=== PATIENT | female | born 1980 | race Caucasian/White ===

== ENCOUNTER 2024-08-08 22:22 | Emergency (ER) | payer BC, SELFPAY ==
[2024-08-09] MEDS ORDERED: Ketorolac Tromethamine 30 MG (1 mL) VIAL ONE (00:06)
== END 2024-08-09 00:23 | disposition home or self-care (01) ==
LOC: ERS 22:22
DX: K08.89 Other specified disorders of teeth and supporting structures (principal); K02.9 Dental caries, unspecified; K03.81 Cracked tooth; F17.210 Nicotine dependence, cigarettes, uncomplicated
CPT/HCPCS: 96372; 99283; J1885

== ENCOUNTER 2025-09-19 07:09 | Inpatient (IN) | payer SELFPAY ==
[2025-09-19] MEDS ORDERED: Lidocaine 1% (PF) 30 ML VIAL ONE (07:12)
[2025-09-19] MEDS ORDERED: Nitroglycerin 50 MG/250 ML BOT 250 ML ONE (07:12)
[2025-09-19] MEDS ORDERED: Heparin 10,000 UNITS/ 10 ML VIAL ONE ×4 (07:12→08:39)
[2025-09-19] MEDS ORDERED: Ondansetron PF 4 MG/2 ML Vial ONE ×2 (07:12→07:18)
[2025-09-19] MEDS ORDERED: Heparin 25,000 UNITS/D5W 500 ml bag ONE (07:18)
[2025-09-19] MEDS ORDERED: Nitroglycerin 2% Ointment 1 INCH/1 GM Packet ONE (07:20)
[2025-09-19 07:44] LABS: PTT 23.4 sec (22.9-36.1)
[2025-09-19 07:45] LABS: #Basophils 0.09 10x3/uL (0.0-0.2); #Eosinophils 0.17 10x3/uL (0.0-0.7); #Monocytes 1.00 10x3/uL (0.11-0.59); #Neutrophils 10.19 10x3/uL (1.40-6.50); %Basophils 0.6 % (0.0-1.0); %Eosinophils 1.1 % (0.0-10.0); %Lymphocytes 24.9 % (21.0-51.0); %Monocytes 6.5 % (0.0-10.0); %Neutrophils 66.3 % (42.0-75.0); Hematocrit 28.8 % (36.0-47.0); Hemoglobin 8.1 g/dL (12.0-16.0); INR-International Normal Ratio 1.3; Mean Corpuscular Hemoglobin 17.8 pg (27.0-31.0); Mean Corpuscular Volume 63.3 fL (78.0-98.0); Platelet Count 306 10x3/uL (130-400); Prothrombin Time 16.6 sec (12.0-14.7); Red Blood Cell (RBC) Count 4.55 mill/uL (4.20-5.40); White Blood Cell (WBC) Count 15.37 10x3/uL (4.8-10.8)
[2025-09-19 07:48] LABS: ALT (SGPT) 7 U/L (Less than 34); AST (SGOT) 14 U/L (11-34); Albumin 3.2 g/dL (3.1-4.5); Alkaline Phosphatase 59 U/L (40-110); Anion Gap 12 mmol/L (10-20); BUN (Urea Nitrogen) 10 mg/dL (7.0-18.7); Bilirubin, Total 0.3 mg/dL (0.3-1.2); Calc. Creatinine Clearance 0 mL/min (70-130); Calcium 8.0 mg/dL (7.8-10.44); Carbon Dioxide 18 mmol/L (22-29); Chloride 114 mmol/L (98-107); Globulin 2.9 g/dL (2.4-3.5); Glucose 147 mg/dL (70-105); Potassium 3.5 mmol/L (3.5-5.1); Sodium 140 mmol/L (136-145)
[2025-09-19] MEDS ORDERED: TICAGRELOR 90 MG TABLET ONE (08:08)
[2025-09-19 08:39] LABS: Burr Cells MODERATE= 6-15 cells HPF (0-1); Microcytosis MODERATE=15-30 cells HPF (0-5); Platelet Adequacy Comment Platelets Normal; Poikilocytosis SLIGHT = 6-15 cells HPF (0-5); Polychromasia SLIGHT = 2-3 cells HPF (0-2); Smudge Cells 11.0 %
[2025-09-19] MEDS ORDERED: Adenosine 6 mg (2 mL) VIAL ONE (08:55)
[2025-09-19] MEDS: Ondansetron PF 4 MG/2 ML Vial IVP PRN (10:47)
[2025-09-19] MEDS: Activase 2 MG VIAL CATH SCH (11:12)
[2025-09-19 11:17] VITALS: BMI 41.5
[2025-09-19] MEDS: Ondansetron PF 4 MG/2 ML Vial ONE (11:18)
[2025-09-19 12:06] LABS: Influenza A by NAA Not Detected (NotDetected); Influenza B by NAA Not Detected (NotDetected); RSV by NAA Not Detected (NotDetected); SARS-CoV-2 NAA Rapid Test Not Detected (NotDetected)
[2025-09-19] MEDS ORDERED: Rocuronium Bromide 10 MG/ML (10ML VIAL) ONE (12:09)
[2025-09-19] MEDS ORDERED: PROPOFOL 20 ML ONE (12:09)
[2025-09-19] MEDS ORDERED: SUCCINYLCHOLINE/SOD CL,ISO/PF 200 MG/10 ML SYRINGE FS ONE (12:09)
[2025-09-19] MEDS ORDERED: Heparin 5,000 UNITS/ML VIAL ONE (12:21)
[2025-09-19] MEDS ORDERED: Iopamidol 370 76% 100 ML VIAL ONE (12:55)
[2025-09-19] MEDS ORDERED: PHENYLEPHRINE-NS 100 MCG/ML 10 ML SYRINGE ONE (13:16)
[2025-09-19 13:34] LABS: Actual Bicarbonate (HCO3a) 16.9 mEq/L (22-28); Base Excess (BEa) -9.1 mEq/L (-2.0 to +3.0); CO2 Tension 36.6 mmHg (35.0-45.0); Calcium, Ionized (arterial) 1.03 mmol/L (1.12-1.30); Hematocrit-ABG 29 % (36.0-47.0); Hemoglobin (Hb) 9.7 g/dL (12.0-16.0); Potassium - ABG Lab 4.87 mmol/L (3.70-5.30); pH, Arterial 7.281 (7.35-7.45)
[2025-09-19 13:39] LABS: Puncture Site Right Radial artery
[2025-09-19 13:59] LABS: #Basophils 0.06 10x3/uL (0.0-0.2); #Eosinophils Less than 0.03 10x3/uL (0.0-0.7); #Monocytes 1.10 10x3/uL (0.11-0.59); #Neutrophils 17.44 10x3/uL (1.40-6.50); %Basophils 0.3 % (0.0-1.0); %Eosinophils 0.1 % (0.0-10.0); %Lymphocytes 5.1 % (21.0-51.0); %Monocytes 5.6 % (0.0-10.0); %Neutrophils 88.0 % (42.0-75.0); Hematocrit 29.3 % (36.0-47.0); Hemoglobin 8.6 g/dL (12.0-16.0); Mean Corpuscular Hemoglobin 22.2 pg (27.0-31.0); Mean Corpuscular Volume 75.5 fL (78.0-98.0); Platelet Count 224 10x3/uL (130-400); Red Blood Cell (RBC) Count 3.88 mill/uL (4.20-5.40); White Blood Cell (WBC) Count 19.79 10x3/uL (4.8-10.8)
[2025-09-19 14:06] LABS: ALT (SGPT) 35 U/L (Less than 34); AST (SGOT) 230 U/L (11-34); Albumin 3.0 g/dL (3.1-4.5); Alkaline Phosphatase 56 U/L (40-110); Anion Gap 14 mmol/L (10-20); BUN (Urea Nitrogen) 10 mg/dL (7.0-18.7); Bilirubin, Total 0.4 mg/dL (0.3-1.2); Calc. Creatinine Clearance 185 mL/min (70-130); Calcium 7.1 mg/dL (7.8-10.44); Carbon Dioxide 16 mmol/L (22-29); Chloride 116 mmol/L (98-107); Globulin 2.5 g/dL (2.4-3.5); Glucose 139 mg/dL (70-105); INR-International Normal Ratio 1.3; Potassium 4.5 mmol/L (3.5-5.1); Prothrombin Time 16.5 sec (12.0-14.7); Sodium 141 mmol/L (136-145)
[2025-09-19 14:07] LABS: PTT 84.6 sec (22.9-36.1)
[2025-09-19] MEDS ORDERED: Fentanyl BOLUS 100 ML IVPB PRN (15:00)
[2025-09-19] MEDS ORDERED: Propofol BOLUS 1,000 MG/100 ML VIAL IV PRN (15:00)
[2025-09-19] MEDS ORDERED: DISCONTINUE PREVIOUS NARCOTIC PAIN MEDICATIONS AND BENZODIAZEPINES FS SCH (15:00)
[2025-09-19] MEDS: Norepinephrine 8 MG/0.9% NS 0 ML ONE (15:20)
[2025-09-19] MEDS ORDERED: Heparin 10,000 UNITS/ 10 ML VIAL SLOW IVP SCH (16:00)
[2025-09-19 16:30] LABS: Hematocrit 27.5 % (36.0-47.0); Hemoglobin 8.3 g/dL (12.0-16.0); Platelet Count 193 10x3/uL (130-400)
[2025-09-19 20:07] LABS: Hematocrit 25.8 % (36.0-47.0); Hemoglobin 7.9 g/dL (12.0-16.0)
[2025-09-19] MEDS: Famotidine/PF 20 mg/2ml Vial SLOW IVP SCH (20:47)
[2025-09-19] MEDS ORDERED: TICAGRELOR 90 MG TABLET PO SCH (21:00)
[2025-09-19 23:02] LABS: Hematocrit 24.1 % (36.0-47.0); Hemoglobin 7.4 g/dL (12.0-16.0)
[2025-09-20 01:01] LABS: #Basophils 0.04 10x3/uL (0.0-0.2); #Eosinophils Less than 0.03 10x3/uL (0.0-0.7); #Monocytes 0.87 10x3/uL (0.11-0.59); #Neutrophils 11.29 10x3/uL (1.40-6.50); %Basophils 0.3 % (0.0-1.0); %Eosinophils 0.1 % (0.0-10.0); %Lymphocytes 15.8 % (21.0-51.0); %Monocytes 6.0 % (0.0-10.0); %Neutrophils 77.3 % (42.0-75.0); Mean Corpuscular Hemoglobin 22.6 pg (27.0-31.0); Mean Corpuscular Volume 74.4 fL (78.0-98.0); Platelet Count 173 10x3/uL (130-400); Red Blood Cell (RBC) Count 3.28 mill/uL (4.20-5.40); White Blood Cell (WBC) Count 14.61 10x3/uL (4.8-10.8)
[2025-09-20 04:48] LABS: #Basophils 0.05 10x3/uL (0.0-0.2); #Eosinophils 0.07 10x3/uL (0.0-0.7); #Monocytes 0.95 10x3/uL (0.11-0.59); #Neutrophils 10.17 10x3/uL (1.40-6.50); %Basophils 0.4 % (0.0-1.0); %Eosinophils 0.5 % (0.0-10.0); %Lymphocytes 19.3 % (21.0-51.0); %Monocytes 6.8 % (0.0-10.0); %Neutrophils 72.5 % (42.0-75.0); Hematocrit 26.7 % (36.0-47.0); Hemoglobin 8.3 g/dL (12.0-16.0); Mean Corpuscular Hemoglobin 22.6 pg (27.0-31.0); Mean Corpuscular Volume 72.8 fL (78.0-98.0); Platelet Count 159 10x3/uL (130-400); Red Blood Cell (RBC) Count 3.67 mill/uL (4.20-5.40); White Blood Cell (WBC) Count 14.01 10x3/uL (4.8-10.8)
[2025-09-20 05:02] LABS: Anion Gap 6 mmol/L (10-20); BUN (Urea Nitrogen) 8 mg/dL (7.0-18.7); Calc. Creatinine Clearance 208 mL/min (70-130); Calcium 7.3 mg/dL (7.8-10.44); Carbon Dioxide 21 mmol/L (22-29); Chloride 117 mmol/L (98-107); Glucose 97 mg/dL (70-105); Magnesium 1.9 mg/dL (1.6-2.6); Potassium 3.5 mmol/L (3.5-5.1); Sodium 140 mmol/L (136-145)
[2025-09-20] MEDS: FLU (Fluarix Triv) 25-26 (6MOS UP)/PF 45 MCG/0.5 ML Syringe IM ONE (07:25)
[2025-09-20 07:29] LABS: O2 Tension (PaO2), arterial 59.7 mmHg (80.0-100.0)
[2025-09-20 07:50] LABS: Actual Bicarbonate (HCO3a) 18.9 mEq/L (22-28); Base Excess (BEa) -4.6 mEq/L (-2.0 to +3.0); CO2 Tension 29.2 mmHg (35.0-45.0); Calcium, Ionized (arterial) 1.06 mmol/L (1.12-1.30); Hematocrit-ABG 28 % (36.0-47.0); Hemoglobin (Hb) 9.4 g/dL (12.0-16.0); O2 Tension (PaO2), arterial 65.1 mmHg (80.0-100.0); Potassium - ABG Lab 3.39 mmol/L (3.70-5.30); pH, Arterial 7.429 (7.35-7.45)
[2025-09-20 07:53] LABS: Puncture Site Left Radial artery
[2025-09-20 07:54] LABS: ALV-art Gradient 183.600 mmHg (0-20)
[2025-09-20] MEDS: Aspirin 81 mg Enteric Coated Tablet PO SCH (08:23)
[2025-09-20 12:20] VITALS: BMI 41.5
[2025-09-20] MEDS ORDERED: DC Sedation Protocol FS SCH (13:50)
[2025-09-20] MEDS: Acetaminophen 325 MG TAB PO PRN (17:19)
[2025-09-21 04:48] LABS: #Basophils 0.07 10x3/uL (0.0-0.2); #Eosinophils 0.17 10x3/uL (0.0-0.7); #Monocytes 1.20 10x3/uL (0.11-0.59); #Neutrophils 9.88 10x3/uL (1.40-6.50); %Basophils 0.5 % (0.0-1.0); %Eosinophils 1.1 % (0.0-10.0); %Lymphocytes 24.7 % (21.0-51.0); %Monocytes 7.9 % (0.0-10.0); %Neutrophils 64.9 % (42.0-75.0); Hematocrit 22.5 % (36.0-47.0); Hemoglobin 7.1 g/dL (12.0-16.0); Mean Corpuscular Hemoglobin 22.8 pg (27.0-31.0); Mean Corpuscular Volume 72.3 fL (78.0-98.0); Platelet Count 160 10x3/uL (130-400); Red Blood Cell (RBC) Count 3.11 mill/uL (4.20-5.40); White Blood Cell (WBC) Count 15.21 10x3/uL (4.8-10.8)
[2025-09-21 04:55] LABS: ALT (SGPT) 24 U/L (Less than 34); AST (SGOT) 89 U/L (11-34); Albumin 2.4 g/dL (3.1-4.5); Alkaline Phosphatase 51 U/L (40-110); Anion Gap 5 mmol/L (10-20); BUN (Urea Nitrogen) 7 mg/dL (7.0-18.7); Bilirubin, Direct 0.2 mg/dL (0.1-0.3); Bilirubin, Total 0.5 mg/dL (0.3-1.2); Calc. Creatinine Clearance 202 mL/min (70-130); Calcium 7.4 mg/dL (7.8-10.44); Carbon Dioxide 24 mmol/L (22-29); Chloride 115 mmol/L (98-107); Glucose 100 mg/dL (70-105); Potassium 3.2 mmol/L (3.5-5.1); Sodium 141 mmol/L (136-145)
[2025-09-21 05:24] LABS: Ferritin 25.74 ng/mL (10-291); Vitamin B12 373.0 pg/mL (211-911)
[2025-09-21] MEDS ORDERED: Electrolyte Replacement Protocol 1 EACH FS SCH (06:30)
[2025-09-21] MEDS ORDERED: PHOS-NAK 1 PKT PACK PO PRN (06:30)
[2025-09-21] MEDS ORDERED: Magnesium Sulfate In Water 4 GM in Premix 1 BAG IVPB PRN (06:30)
[2025-09-21] MEDS: Potassium Chloride 20 MEQ in Premix 1 BAG IVPB PRN (07:10)
[2025-09-21] MEDS: Mupirocin 1 GM TUBE NASAL DECOLONIZATION NASAL SCH (09:14)
[2025-09-21] MEDS: Furosemide 20 MG (2 mL) VIAL SLOW IVP SCH ×2 (12:35→15:03)
[2025-09-21 16:33] LABS: Hematocrit 29.4 % (36.0-47.0); Hemoglobin 9.3 g/dL (12.0-16.0)
[2025-09-21] MEDS: Famotidine 20 MG TAB PO SCH (19:35)
[2025-09-22 03:38] LABS: #Basophils 0.06 10x3/uL (0.0-0.2); #Eosinophils 0.27 10x3/uL (0.0-0.7); #Monocytes 1.15 10x3/uL (0.11-0.59); #Neutrophils 9.11 10x3/uL (1.40-6.50); %Basophils 0.5 % (0.0-1.0); %Eosinophils 2.0 % (0.0-10.0); %Lymphocytes 19.0 % (21.0-51.0); %Monocytes 8.7 % (0.0-10.0); %Neutrophils 68.9 % (42.0-75.0); Hematocrit 27.6 % (36.0-47.0); Hemoglobin 8.9 g/dL (12.0-16.0); Mean Corpuscular Hemoglobin 24.1 pg (27.0-31.0); Mean Corpuscular Volume 74.6 fL (78.0-98.0); Platelet Count 169 10x3/uL (130-400); Red Blood Cell (RBC) Count 3.70 mill/uL (4.20-5.40); White Blood Cell (WBC) Count 13.23 10x3/uL (4.8-10.8)
[2025-09-22 03:47] LABS: ALT (SGPT) 19 U/L (Less than 34); AST (SGOT) 52 U/L (11-34); Albumin 2.7 g/dL (3.1-4.5); Alkaline Phosphatase 61 U/L (40-110); Anion Gap 12 mmol/L (10-20); BUN (Urea Nitrogen) 7 mg/dL (7.0-18.7); Bilirubin, Total 0.7 mg/dL (0.3-1.2); Calc. Creatinine Clearance 199 mL/min (70-130); Calcium 8.1 mg/dL (7.8-10.44); Carbon Dioxide 22 mmol/L (22-29); Chloride 111 mmol/L (98-107); Globulin 2.9 g/dL (2.4-3.5); Glucose 106 mg/dL (70-105); Potassium 3.4 mmol/L (3.5-5.1); Sodium 142 mmol/L (136-145)
[2025-09-22] MEDS: Dapagliflozin Propanediol 10 MG TAB PO SCH (10:22)
[2025-09-22] MEDS: Carvedilol 3.125 MG TAB PO SCH (16:12)
[2025-09-23 08:28] LABS: #Basophils 0.06 10x3/uL (0.0-0.2); #Eosinophils 0.33 10x3/uL (0.0-0.7); #Monocytes 0.88 10x3/uL (0.11-0.59); #Neutrophils 7.58 10x3/uL (1.40-6.50); %Basophils 0.6 % (0.0-1.0); %Eosinophils 3.1 % (0.0-10.0); %Lymphocytes 14.8 % (21.0-51.0); %Monocytes 8.4 % (0.0-10.0); %Neutrophils 72.3 % (42.0-75.0); Hematocrit 27.1 % (36.0-47.0); Hemoglobin 8.6 g/dL (12.0-16.0); Mean Corpuscular Hemoglobin 24.2 pg (27.0-31.0); Mean Corpuscular Volume 76.3 fL (78.0-98.0); Platelet Count 184 10x3/uL (130-400); Red Blood Cell (RBC) Count 3.55 mill/uL (4.20-5.40); White Blood Cell (WBC) Count 10.48 10x3/uL (4.8-10.8)
[2025-09-23 08:36] LABS: ALT (SGPT) 28 U/L (Less than 34); AST (SGOT) 52 U/L (11-34); Albumin 2.9 g/dL (3.1-4.5); Alkaline Phosphatase 80 U/L (40-110); Anion Gap 14 mmol/L (10-20); BUN (Urea Nitrogen) 9 mg/dL (7.0-18.7); Bilirubin, Total 1.0 mg/dL (0.3-1.2); Calc. Creatinine Clearance 192 mL/min (70-130); Calcium 8.6 mg/dL (7.8-10.44); Carbon Dioxide 20 mmol/L (22-29); Chloride 111 mmol/L (98-107); Globulin 2.8 g/dL (2.4-3.5); Glucose 106 mg/dL (70-105); Magnesium 2.0 mg/dL (1.6-2.6); Potassium 3.8 mmol/L (3.5-5.1); Sodium 141 mmol/L (136-145)
[2025-09-23 08:57] LABS: Anisocytosis SLIGHT = 6-15 cells HPF (0-5); Microcytosis SLIGHT = 6-15 cells HPF (0-5); Platelet Adequacy Comment Platelets Normal; Polychromasia MARKED = >4 cells HPF (0-2); Schistocytes SLIGHT = 2-5 cells HPF (0-1); Target Cells SLIGHT = 2-5 cells HPF (0-1)
[2025-09-23] MEDS: Sacubitril 24MG/Valsartan 26 MG TAB PO SCH (09:55)
[2025-09-23] MEDS: Benzonatate 100 MG CAP PO PRN (23:40)
[2025-09-24 05:21] LABS: #Basophils 0.05 10x3/uL (0.0-0.2); #Eosinophils 0.35 10x3/uL (0.0-0.7); #Monocytes 1.01 10x3/uL (0.11-0.59); #Neutrophils 7.30 10x3/uL (1.40-6.50); %Basophils 0.5 % (0.0-1.0); %Eosinophils 3.2 % (0.0-10.0); %Lymphocytes 19.1 % (21.0-51.0); %Monocytes 9.3 % (0.0-10.0); %Neutrophils 67.2 % (42.0-75.0); Hematocrit 28.8 % (36.0-47.0); Hemoglobin 8.8 g/dL (12.0-16.0); Mean Corpuscular Hemoglobin 23.7 pg (27.0-31.0); Mean Corpuscular Volume 77.6 fL (78.0-98.0); Platelet Count 221 10x3/uL (130-400); Red Blood Cell (RBC) Count 3.71 mill/uL (4.20-5.40); White Blood Cell (WBC) Count 10.86 10x3/uL (4.8-10.8)
[2025-09-24 05:35] LABS: ALT (SGPT) 27 U/L (Less than 34); AST (SGOT) 38 U/L (11-34); Albumin 3.0 g/dL (3.1-4.5); Alkaline Phosphatase 85 U/L (40-110); Anion Gap 10 mmol/L (10-20); BUN (Urea Nitrogen) 12 mg/dL (7.0-18.7); Bilirubin, Total 1.2 mg/dL (0.3-1.2); Calc. Creatinine Clearance 202 mL/min (70-130); Calcium 8.5 mg/dL (7.8-10.44); Carbon Dioxide 22 mmol/L (22-29); Chloride 111 mmol/L (98-107); Globulin 2.9 g/dL (2.4-3.5); Glucose 101 mg/dL (70-105); Magnesium 2.0 mg/dL (1.6-2.6); Potassium 3.9 mmol/L (3.5-5.1); Sodium 139 mmol/L (136-145)
[2025-09-24 06:10] LABS: Anisocytosis SLIGHT = 6-15 cells HPF (0-5); Microcytosis SLIGHT = 6-15 cells HPF (0-5); Platelet Adequacy Comment Platelets Normal; Polychromasia SLIGHT = 2-3 cells HPF (0-2)
[2025-09-24 11:59] VITALS: BP 119/70; TEMP 98.1
== END 2025-09-24 15:05 | disposition home or self-care (01) | DRG 270 ==
LOC: ERS 07:09 → CCL 07:25 → CCU 10:18 → 2NO 09-22 14:06
PROVIDERS: ADMIT Internal Medicine; ATTEND Internal Medicine
PROC: 02713EZ Dilation of Coronary Artery, Two Arteries with Two Intraluminal Devices, Percutaneous Approach (ICD-10-PCS; principal; 2025-09-19)
PROC: B2151ZZ Fluoroscopy of Left Heart using Low Osmolar Contrast (ICD-10-PCS; principal; 2025-09-19)
PROC: 5A0 Extracorporeal or Systemic Assistance and Performance, Physiological Systems, Assistance (ICD-10-PCS; principal; 2025-09-19)
PROC: 4A023N7 Measurement of Cardiac Sampling and Pressure, Left Heart, Percutaneous Approach (ICD-10-PCS; principal; 2025-09-19)
PROC: 02703ZZ Dilation of Coronary Artery, One Artery, Percutaneous Approach (ICD-10-PCS; principal; 2025-09-19)
PROC: 4A133R1 Monitoring of Arterial Saturation, Peripheral, Percutaneous Approach (ICD-10-PCS; principal; 2025-09-19)
PROC: 04CK3ZZ Extirpation of Matter from Right Femoral Artery, Percutaneous Approach (ICD-10-PCS; principal; 2025-09-19)
PROC: 5A1935Z Respiratory Ventilation, Less than 24 Consecutive Hours (ICD-10-PCS; 2025-09-19)
DX: I21.4 Non-ST elevation (NSTEMI) myocardial infarction (principal); J95.821 Acute postprocedural respiratory failure; D62 Acute posthemorrhagic anemia; I50.22 Chronic systolic (congestive) heart failure; I97.638 Postprocedural hematoma of a circulatory system organ or structure following other circulatory system procedure; Z68.41 Body mass index [BMI] 40.0-44.9, adult; E66.01 Morbid (severe) obesity due to excess calories; I25.5 Ischemic cardiomyopathy; I72.4 Aneurysm of artery of lower extremity; Z79.82 Long term (current) use of aspirin; Z79.899 Other long term (current) drug therapy
CPT/HCPCS: 36415; 36430; 36600; 71045; 74018; 80048; 80053; 80076; 82607; 82728; 82805; 83540; 83735; 84484; 85025; 85347; 85610; 85730; 86850; 86900; 86901; 87637; 92920; 92941; 92973; 92975; 93005; 93010; 93306; 93458; 94002; 94003; 94760; 99152; 99153; C1725; C1751; C1757; C1760; C1769; C1887; C1894; J0153; J1308; J1644; J1940; J2003; J2250; J2405; J2704; J2916; J2997; J3010; J3246; J3480; J7030; P9016; P9035; P9048; Q9967